=== PATIENT | female | born 1970 | race Caucasian/White ===

== ENCOUNTER 2016-04-23 17:05 | Observation (INO) | payer MEDICARE, MEDICAID ==
[~2016-04-23 17:05] MED LIST: ALBU.63PRN NEB; ALLO100 PO; ATOR20TA42 PO; CYMB30CA PO; FLUT1INH7 INH; METF500 PO; METO25 PO; MONT10 PO; NEUR600T PO; PRED20 PO; TRAZ100 PO
[2016-04-23 17:35] VITALS: BP 105/59; PULSE 79; RESP 16; TEMP 98.2; O2SAT 98
[2016-04-23] MEDS ORDERED: SODIUM CHLOR 0.9% 1000 ML INJ 1,000 ML IV SCH ×2 (17:40→21:12)
--- NOTE | 2016-04-23 17:54 | RADRPT ---
EXAM DATE/TIME: 04/23/2016 17:49 [facility] COMPARISON: CHEST SINGLE AP, October 09, 2015, 16:44. INDICATIONS : Syncopal episode today MEDICAL HISTORY : None. SURGICAL HISTORY : None. ENCOUNTER: Initial ACUITY: 1 day PAIN SCORE: 0/10 LOCATION: Bilateral chest FINDINGS: A single view of the chest demonstrates the lungs to be symmetrically aerated without evidence of mas s, infiltrate or effusion. The cardiomediastinal contours are unremarkable. Osseous structures are intact. CONCLUSION: No evidence of acute cardiopulmonary disease. Edi Love MD on April 23, 2016 at 17:53 Board Certified Radiologist. This report was verified electronically.
--- NOTE | 2016-04-23 18:11 | PD ---
HPI Chief Complaint: Syncope/Near-Syncope Time Seen by Provider: 18:01 Travel History International Travel<30 days: No Contact w/Intl Traveler<30days: No Traveled to known affect area: No History of Present Illness HPI 46-year-old female that presents to the ED for evaluation of possible syncopal episode. There are U back and patient she apparently was driving and was going to [place] when she per patient didn't fell well and had a syncopal episode. Per patient she lost consciousness. She denies falling or hitting her head. When asked if she fell anything before she passed out she says that she didn't. On my exam patient does appear to be very lethargic but is arousable. Patient states that for the past 2 weeks she's been having kidney stone/urinary symptoms and apparently she was prescribed codeine and she's been taking it since. When asked why she took the codeine today which she does tell me that she took it she states that she had some problems with her urine and some back pains as he thought that she was related to the kidney stones that she took the medication. Per patient she took this around 10:00. Per patient she took 300 mg. She minimizes driving and taking the medication. She also tells me that she's had 6 syncopal episodes since 2015. She states that she's also had some falls and uses usually a walker to go about. She denies any chest pain or shortness of breath. At this time she complains of nothing but she is somewhat lethargic. She denies any blood thinners. She does have a history of psychiatric illness including bipolar disorder. History of diabetes and hypertension. PFSH Past Medical History Arthritis: Yes (RA) Asthma: Yes Bipolar Disorder: Yes Anxiety: Yes Depression: Yes High Cholesterol: Yes Chemotherapy: No Chest Pain: No Cerebrovascular Accident: No Diabetes: Yes (METFORMIN 01/23/16) Diminished Hearing: No Endocrine: Yes Fibromyalgia: Yes Gastrointestinal Disorders: Yes (VOMITING ) GERD: Yes Genitourinary: No Hypertension: Yes Immune Disorder: No Implanted Vascular Access Dvce: No Musculoskeletal: Yes (HERNIATED DISC IN NECK) Reproductive: No Respiratory: Yes (COPD, ASTHMA) Immunizations Current: Yes Migraines: No Menopausal: Yes : 0 Past Surgical History Abdominal Surgery: No Appendectomy: Yes Cardiac Surgery: No Cholecystectomy: Yes Ear Surgery: No Endocrine Surgery: No Eye Surgery: No Genitourinary Surgery: Yes (BLADDER SLING REMOVED) Gynecologic Surgery: Yes Hysterectomy: Yes Neurologic Surgery: No Oral Surgery: No Thoracic Surgery: No Tonsillectomy: Yes Other Surgery: Yes (NECK SURGERY 10-10-14) Social History Alcohol Use: No Tobacco Use: No Substance Use: No Allergies-Medications (Allergen,Severity, Reaction): Coded Allergies: Amoxicillin (Verified Allergy, Severe, HIVES, 04/23/16) Flexeril (Verified Allergy, Severe, HIVES, 04/23/16) Ibuprofen (Verified Allergy, Severe, Bleeding, 04/23/16) Motrin (Verified Allergy, Severe, GI BLEED, 04/23/16) Reglan (Verified Allergy, Severe, DYSTONIA, 04/23/16) Skelaxin (Verified Allergy, Severe, HIVES, 04/23/16) Tomato (Verified Allergy, Severe, 04/23/16) Dilaudid (Verified Adverse Reaction, Intermediate, VOMITING, 04/23/16) Uncoded Allergies: ADIPEX (Allergy, Unknown, 10/18/13) Reported Meds & Prescriptions Reported Meds & Active Scripts Active Reported Albuterol Neb (Albuterol Sulfate) 0.63 Mg/3 Ml Neb 0.63 Mg NEB QID NEB PRN Allopurinol 100 Mg Tab 100 Mg PO DAILY Atorvastatin (Atorvastatin Calcium) 20 Mg Tab 20 Mg PO HS Breo Ellipta Inh (Fluticasone/Vilanterol) 200-25 Mcg/Act Inh 1 Puff INH DAILY Use daily at the same time. Gabapentin 800 Mg Tab 800 Mg PO TID Metformin (Metformin HCl) 500 Mg Tab 500 Mg PO BIDPC With meals Metoprolol Tartrate 25 Mg Tab 25 Mg PO BID Montelukast (Montelukast Sodium) 10 Mg Tab 10 Mg PO HS Trazodone (Trazodone HCl) 100 Mg Tab 100 Mg PO HS Baclofen 10 Mg Tab 10 Mg PO TID Review of Systems General / Constitutional: No: Fever, Chills, Weight Gain, Weight Loss, Other Eyes: No: Diploplia, Blurred Vision, Photophobia, Drainage, Redness, Foreign Body Sensation, Pain, Tearing, Blind Spots, Visual changes, Blindness, Other HENT: Positive: Lightheadedness, No: Headaches, Vertigo, Sore Throat, Rhinitis , Rhinorrhea, Congestion, Nosebleed, Neck Stiffness, Neck Pain, Masses, Gingival Bleeding, Dental Difficulties, Ear Discharge, Earache, Other Cardiovascular: No: Chest Pain or Discomfort, Palpitations, Irregular Rhythm, Tachycardia, Diaphoresis, Syncope, Dyspnea on exertion, Varicosities, Edema, Cyanosis, Varicosities, Phlebitis, Claudication, Other Respiratory: No: Cough, Shortness of Breath, Wheezing, Sneezing, Orthopnea, Hemoptysis, Stridor, Night Sweats, Pleuritic Pain, Other Gastrointestinal: No: Nausea, Vomiting, Diarrhea, Abdominal Pain, Hematemesis, Hematochezia, Constipation, Changes in Bowel Habits, Indigestion, Dysphagia, Loss of Appetite, Other Genitourinary: Positive: Frequency, Dysuria, Flank Pain, No: Urgency, Nocturia , Hematuria, Decreased Urinary Output, Oliguria, Hesitancy, Dribbling, Incontinence, Pelvic Pain, Dyspareunia, Discharge, Dysmenorrhea, Menorrhagia, Metorrhagia, Vaginal Bleeding, Other Musculoskeletal: No: Myalgias, Arthralgias, Limited ROM, Weakness, Cramping, Edema, Pain, Atrophy, Other Skin: No Rash, No Itching, No Dryness, No Lumps, No Hives, No Change in Pigmentation, No Change in nails, No Alopecia, No Lesions, No Breast Lumps, No Breast Tenderness, No Breast Swelling, No Other Neurologic: Positive: Dizziness, Syncope, No: Weakness, Focal Abnormalities, Coordination Problem, Tremor, Ataxia, Headache, Change in Mentation, Slurred Speech, Paresthesia, Incontinence, Seizures, Sensory Disturbance, Other Psychiatric: Positive: Mood Disorder, Substance Abuse, No: Anxiety, Depression , Suicidal Ideations, Disorder of Thought, Homicidal Ideation, Other Endocrine: No: Heat Intolerance, Cold Intolerance, Polyuria, Polydipsia, Other Hematologic/Lymphatic: No: Easy Bruising, Lymph Node Enlargement, Other Physical Exam Narrative GENERAL: SKIN: Warm and dry. HEAD: Atraumatic. Normocephalic. EYES: Pupils equal and round dilated 6 mm reactive to light and accomodation. No scleral icterus. No injection or drainage. ENT: No nasal bleeding or discharge. Mucous membranes pink and moist. Tongue is midline. No uvula deviation. NECK: Trachea midline. No JVD. CARDIOVASCULAR: Regular rate and rhythm. No murmurs, S3, S4. RESPIRATORY: No accessory muscle use. Clear to auscultation. Breath sounds equal bilaterally. GASTROINTESTINAL: Abdomen soft, non-tender, nondistended. Hepatic and splenic margins not palpable. MUSCULOSKELETAL: Extremities without clubbing, cyanosis, or edema. No obvious deformities. Full range of motion of the upper and lower extremities bilaterally. 2+ pulses in all extremities. NEUROLOGICAL: Awake and alert. No obvious cranial nerve deficits. Motor grossly within normal limits. Five out of 5 muscle strength in the arms and legs. Normal speech. PSYCHIATRIC: Appropriate mood and affect; insight and judgment normal. Data Data Last Documented VS Vital Signs Date Time Temp Pulse Resp B/P Pulse Ox O2 Delivery O2 Flow Rate FiO2 04/23/16 20:28 74 16 98 Room Air 04/23/16 20:28 98.1 111/71 Orders Electrocardiogram (04/23/16 ) Complete Blood Count With Diff (04/23/16 17:38) Comprehensive Metabolic Panel (04/23/16:38) Troponin I (04/23/16:38) Prothrombin Time / Inr (Pt) (04/23/16:38) Act Partial Throm Time (Ptt) (04/23/16:38) Lipase (04/23/16 17:38) Urinalysis - C+S If Indicated (04/23/16:38) Magnesium (Mg) (04/23/16 17:38) Thyroid Stimulating Hormone (04/23/16 17:38) Chest, Single Ap (04/23/16 17:38) Ct Brain W/O Iv Contrast(Rout) (04/23/16 17:38) Iv Access Insert/Monitor (04/23/16:38) Ecg Monitoring (04/23/16:38) Oximetry (04/23/16 17:38) Drug Screen, Random Urine (04/23/16:38) Alcohol (Ethanol) (04/23/16 17:38) Tylenol (Acetaminophen) (04/23/16 17:38) Sodium Chlor 0.9% 1000 Ml Inj (Ns 1000 M (04/23/16 17:40) Naloxone Inj (Narcan Inj) (04/23/16 19:45) Acetaminophen (Tylenol) (04/23/16 21:00) Admit Order (Ed Use Only) (04/23/16 21:07) Labs Laboratory Tests Test 04/23/16 04/23/16 18:45 19:30 White Blood Count 10.2 TH/MM3 Red Blood Count 3.98 MIL/MM3 Hemoglobin 11.6 GM/DL Hematocrit 35.8 % Mean Corpuscular Volume 89.8 FL Mean Corpuscular Hemoglobin 29.1 PG Mean Corpuscular Hemoglobin 32.4 % Concent Red Cell Distribution Width 16.3 % Platelet Count 297 TH/MM3 Mean Platelet Volume 7.9 FL Neutrophils (%) (Auto) 75.7 % Lymphocytes (%) (Auto) 15.0 % Monocytes (%) (Auto) 8.3 % Eosinophils (%) (Auto) 0.8 % Basophils (%) (Auto) 0.2 % Neutrophils # (Auto) 7.8 TH/MM3 Lymphocytes # (Auto) 1.5 TH/MM3 Monocytes # (Auto) 0.9 TH/MM3 Eosinophils # (Auto) 0.1 TH/MM3 Basophils # (Auto) 0.0 TH/MM3 CBC Comment DIFF FINAL Differential Comment Prothrombin Time 9.7 SEC Prothromb Time International 0.9 RATIO Ratio Activated Partial 21.1 SEC Thromboplast Time Sodium Level 142 MEQ/L Potassium Level 3.7 MEQ/L Chloride Level 109 MEQ/L Carbon Dioxide Level 26.3 MEQ/L Anion Gap 7 MEQ/L Blood Urea Nitrogen 25 MG/DL Creatinine 1.24 MG/DL Estimat Glomerular Filtration 47 ML/MIN Rate Random Glucose 103 MG/DL Calcium Level 8.7 MG/DL Magnesium Level 2.2 MG/DL Total Bilirubin 0.2 MG/DL Aspartate Amino Transf 14 U/L (AST/SGOT) Alanine Aminotransferase 25 U/L (ALT/SGPT) Alkaline Phosphatase 105 U/L Troponin I LESS THAN 0.02 NG/ML Total Protein 6.5 GM/DL Albumin 3.1 GM/DL Lipase 136 U/L Thyroid Stimulating Hormone 0.845 uIU/ML 3rd Gen Acetaminophen Level LESS THAN 2.0 MCG/ML Ethyl Alcohol Level LESS THAN 3 MG/DL Urine Color YELLOW Urine Turbidity CLEAR Urine pH 6.0 Urine Specific Anderson 1.015 Urine Protein NEG mg/dL Urine Glucose (UA) NEG mg/dL Urine Ketones NEG mg/dL Urine Occult Blood NEG Urine Nitrite NEG Urine Bilirubin NEG Urine Urobilinogen LESS THAN 2.0 MG/DL Urine Leukocyte Esterase NEG Urine WBC 2 /hpf Microscopic Urinalysis Comment CULT NOT INDICATED Urine Opiates Screen POS Urine Barbiturates Screen NEG Urine Amphetamines Screen NEG Urine Benzodiazepines Screen NEG Urine Cocaine Screen NEG Urine Cannabinoids Screen NEG MDM Medical Decision Making Medical Screen Exam Complete: Yes Emergency Medical Condition: Yes Medical Record Reviewed: Yes Interpretation(s) Last Impressions Head CT 04/23/161737 Signed Impressions: Service Date/Time: Saturday, April 23, 2016 18:03 - CONCLUSION: Negative noncontrast head CT. Edi Love MD Chest X-Ray 04/23/161737 Signed Impressions: Service Date/Time: Saturday, April 23, 2016 17:49 - CONCLUSION: No evidence of acute cardiopulmonary disease. Edi Love MD CBC & BMP Diagram 04/23/16 18:45 Coags within normal limits. Urine negative EKG shows sinus rhythm with no sign of acute ischemia or arrhythmia read by me and attending. LFTs within normal limits. tox screen positive for opiates Differential Diagnosis Syncope versus medication side effect versus substance abuse versus hypoglycemia versus kidney injury versus dehydration versus metabolic disorder versus presyncope Narrative Course 46-year-old female that presents to the ED for evaluation of syncope. Patient was properly examined and was found to have signs and symptoms consistent with appears to be syncope. From my history it appears to be more likely related to over abuse of the codeine. We'll do labwork and imaging to make sure there is no other acute disease. Labs and imaging showed no sign of acute disease other than positive for opiates. My attending Dr. Martinez evaluated the patient and per her evaluation patient was more somnolent during her examination. She recommended admission and Narcan. Narcan was given. She was reassessed and now she complains of a headache. She does appear to be more arousable but she still seems somewhat somnolent. Recommendation is for admission for out. Case was discussed with Dr. Plascencia who agrees to admission. Diagnosis Primary Impression: Opiate abuse, continuous Additional Impression: Syncope Qualified Code: R55 - Syncope, unspecified syncope type Admitting Information Admitting Physician Requests: Observation Wilmar Turner Apr 23, 2016 18:11
--- NOTE | 2016-04-23 18:27 | RADRPT ---
EXAM DATE/TIME: 04/23/2016 18:03 [facility] COMPARISON: CT BRAIN W/O CONTRAST, July 31, 2015, 1:36. INDICATIONS : Syncopal episode. RADIATION DOSE: 47.75 CTDIvol (mGy) MEDICAL HISTORY : Hypertension. Diabetes mellitus type 2. SURGICAL HISTORY : None. ENCOUNTER: Initial ACUITY: 1 day PAIN SCALE: 0/10 LOCATION: cranial TECHNIQUE: Multiple contiguous axial images were obtained of the head. Using automated exposure control and adj ustment of the mA and/or kV according to patient size, radiation dose was kept as low as reasonably a chievable to obtain optimal diagnostic quality images. FINDINGS: CEREBRUM: The ventricles are normal for age. No evidence of midline shift, mass lesion, hemorrhage or acute in farction. No extra-axial fluid collections are seen. POSTERIOR FOSSA: The cerebellum and brainstem are intact. The 4th ventricle is midline. The cerebellopontine angle i s unremarkable. EXTRACRANIAL: The visualized portion of the orbits is intact. SKULL: The calvaria is intact. No evidence of skull fracture. CONCLUSION: Negative noncontrast head CT. Edi Love MD on April 23, 2016 at 18:25 Board Certified Radiologist. This report was verified electronically.
[2016-04-23] MEDS ORDERED: ALLO100T PO (18:47)
[2016-04-23] MEDS ORDERED: METF500T PO (18:47)
[2016-04-23] MEDS ORDERED: TRAZ100T4 PO (18:47)
[2016-04-23] MEDS ORDERED: ALBU0.63 NEB (18:47)
[2016-04-23] MEDS ORDERED: METO25TA3 PO (18:47)
[2016-04-23] MEDS ORDERED: BACL10TA PO (18:47)
[2016-04-23] MEDS ORDERED: GABA800T PO (18:47)
[2016-04-23] MEDS ORDERED: FLUT1INH7 INH (18:47)
[2016-04-23] MEDS ORDERED: MONT10TA4 PO (18:47)
[2016-04-23] MEDS ORDERED: ATOR20TA15 PO (18:47)
[2016-04-23 19:06] LABS: AUTOMATED NEUTROPHIL # 7.8 TH/MM3 (1.8-7.7); BASOPHIL % 0.2 % (0.0-2.0); EOSINOPHIL # 0.1 TH/MM3 (0-0.4); EOSINOPHIL % 0.8 % (0.0-4.0); HEMATOCRIT 35.8 % (35.0-46.0); HEMO FLAGS DIFF FINAL; LYMPHOCYTE # 1.5 TH/MM3 (1.0-4.8); MEAN CELL VOLUME 89.8 FL (80.0-100.0); MEAN CORPUSCULAR HEMOGLOBIN 29.1 PG (27.0-34.0); MEAN CORPUSCULAR HGB CONC 32.4 % (32.0-36.0); MONO % 8.3 % (0.0-8.0); NEUT % 75.7 % (16.0-70.0); PLATELET COUNT 297 TH/MM3 (150-450); RED BLOOD COUNT 3.98 MIL/MM3 (4.00-5.30); RED CELL DISTRIBUTION WIDTH 16.3 % (11.6-17.2); WHITE BLOOD COUNT 10.2 TH/MM3 (4.0-11.0)
[2016-04-23 19:43] LABS: BLOOD, URINE NEG (NEG); COMMENT (UR) CULT NOT INDICATED; CULTURE IF INDICATED CULT NOT INDICATED; GLUCOSE,URINE NEG (NEG); KETONE, URINE NEG (NEG); NITRITE,URINE NEG (NEG); URINE COLOR YELLOW (YELLW/STRAW)
[2016-04-23 19:44] LABS: ANION GAP 7 MEQ/L (5-15); AST (GOT) 14 U/L (15-37); BICARBONATE 26.3 MEQ/L (21.0-32.0); BLOOD UREA NITROGEN 25 MG/DL (7-18); CHLORIDE 109 MEQ/L (98-107); GLOMERULAR FILTRATION RATE 47 ML/MIN (>89); MAGNESIUM 2.2 MG/DL (1.5-2.5); POTASSIUM 3.7 MEQ/L (3.5-5.1); SODIUM (NA) 142 MEQ/L (136-145)
[2016-04-23] MEDS ORDERED: NALOXONE HCL 0.4 MG/ML AMP IV PUSH PRN (19:45)
--- NOTE | 2016-04-23 19:45 | PD ---
Physical Exam Date Seen by Provider: Apr 23, 2016 Time Seen by Provider: 18:30 Narrative I, Dr. Ulloa, have reviewed the advance practice practitioner's documentation and am in agreement, met with the patient face to face, made the diagnosis, and the medical decision making was done by me. *My assessment and Findings: Patient seen and evaluated with PA, please see PA further information. Had syncopal episodes at [facility] Patient admits to taking Tylenol 3. On my evaluation, patient is fairly lethargic and barely able to talk to me. Pupils are dilated. Vital signs are stable in the ER. Initial EKG not show any signs of dysrhythmias. Pulmonary and cardiac exams are essentially unremarkable and patient is able to move all 4 extremities. Laboratory Tests Test 04/23/16 18:45 Red Blood Count 3.98 MIL/MM3 (4.00-5.30) Neutrophils (%) (Auto) 75.7 % (16.0-70.0) Monocytes (%) (Auto) 8.3 % (0.0-8.0) Neutrophils # (Auto) 7.8 TH/MM3 (1.8-7.7) Last [address] 04/23/161737 Signed Impressions: Service Date/Time: Saturday, April 23, 2016 18:03 - CONCLUSION: Negative noncontrast head CT. Edi Love MD Chest X-Ray 04/23/161737 Signed Impressions: Service Date/Time: Saturday, April 23, 2016 17:49 - CONCLUSION: No evidence of acute cardiopulmonary disease. Edi Love MD At this point, my plan would be to admit the patient for observation for possible overmedication, altered mental status as well as syncope. Data Data Last Documented VS Vital Signs Date Time Temp Pulse Resp B/P Pulse Ox O2 Delivery O2 Flow Rate FiO2 04/23/16 17:35 98.2 79 16 105/59 98 Orders Electrocardiogram (04/23/16 ) Complete Blood Count With Diff (04/23/16 17:38) Comprehensive Metabolic Panel (04/23/16 17:38) Troponin I (04/23/16 17:38) Prothrombin Time / Inr (Pt) (04/23/16 17:38) Act Partial Throm Time (Ptt) (04/23/16 17:38) Lipase (04/23/16 17:38) Urinalysis - C+S If Indicated (04/23/16 17:38) Magnesium (Mg) (04/23/16 17:38) Thyroid Stimulating Hormone (04/23/16 17:38) Chest, Single Ap (04/23/16 17:38) Ct Brain W/O Iv Contrast(Rout) (04/23/16 17:38) Iv Access Insert/Monitor (04/23/16:38) Ecg Monitoring (04/23/16:38) Oximetry (04/23/16 17:38) Drug Screen, Random Urine (04/23/16 17:38) Alcohol (Ethanol) (04/23/16:38) Tylenol (Acetaminophen) (04/23/16:38) Sodium Chlor 0.9% 1000 Ml Inj (Ns 1000 M (04/23/16 17:40) Naloxone Inj (Narcan Inj) (04/23/16 19:45) Labs Laboratory Tests Test 04/23/16 18:45 White Blood Count 10.2 TH/MM3 Red Blood Count 3.98 MIL/MM3 Hemoglobin 11.6 GM/DL Hematocrit 35.8 % Mean Corpuscular Volume 89.8 FL Mean Corpuscular Hemoglobin 29.1 PG Mean Corpuscular Hemoglobin 32.4 % Concent Red Cell Distribution Width 16.3 % Platelet Count 297 TH/MM3 Mean Platelet Volume 7.9 FL Neutrophils (%) (Auto) 75.7 % Lymphocytes (%) (Auto) 15.0 % Monocytes (%) (Auto) 8.3 % Eosinophils (%) (Auto) 0.8 % Basophils (%) (Auto) 0.2 % Neutrophils # (Auto) 7.8 TH/MM3 Lymphocytes # (Auto) 1.5 TH/MM3 Monocytes # (Auto) 0.9 TH/MM3 Eosinophils # (Auto) 0.1 TH/MM3 Basophils # (Auto) 0.0 TH/MM3 CBC Comment DIFF FINAL Differential Comment MDM Medical Record Reviewed: Yes Supervised Visit with REEMA: Yes Diagnosis Primary Impression: Overdose Admitting Information Admitting Physician Requests: Admit Laurence Ulloa MD Apr 23, 2016 19:45
[2016-04-23 19:54] LABS: AMPHETAMINE, URINE NEG (NEG); BARBITURATES, URINE NEG (NEG); COCAINE, URINE NEG (NEG)
[2016-04-23 19:55] LABS: ACETAMINOPHEN LESS THAN 2.0 MCG/ML (10.0-30.0); ALKALINE PHOSPHATASE 105 U/L (45-117); ALT (GPT) 25 U/L (10-53); APTT (PATIENT) 21.1 SEC (24.3-30.1); INTERNATIONAL NORMALIZED RATIO 0.9 RATIO; PROTHROMBIN TIME - PATIENT 9.7 SEC (9.8-11.6); TOTAL BILIRUBIN ADULT 0.2 MG/DL (0.2-1.0)
[2016-04-23 20:28] VITALS: BP 111/71; PULSE 73; RESP 16; TEMP 98.1; O2SAT 100
[2016-04-23] MEDS ORDERED: ACETAMINOPHEN 325 MG TAB PO ONE (21:00)
--- NOTE | 2016-04-23 21:14 | HHI.HP ---
HPI Service [facility] Primary Care Physician No Primary Care Physician Admission Diagnosis syncope, substance abuse Diagnoses: (1) Syncope Diagnosis: Principal (2) Opiate abuse, continuous Diagnosis: Principal (3) Renal insufficiency Diagnosis: Principal (4) Bipolar disorder Diagnosis: Principal (5) DM (diabetes mellitus) Diagnosis: Principal Travel History International Travel<30 Days: No Contact w/Intl Traveler <30 Da: No Traveled to Known Affected Are: No History of Present Illness This is a 46-year-old female with a PMH of Anxiety, Depression, Bipolar Disorder , h/o Omer Act w/ Homicidal Ideation, DM, HTN, Fibromyalgia and COPD who was brought to the ER by EMS after syncopal episode. Per report, pt had syncopal event while at [employer] [address] through. LOC for unknown length of time. No head trauma reported. On arrival, BP 105/59, HR 79, O2 sat 98% on RA, Afebrile. While in ER, pt noted to be lethargic, difficult to arouse, s/p Narcan w/ improvement in mental status. Currently awake, alert. Requesting pain medication for headache. CBC unremarkable. Creatinine 1.24, previously 0.81 on 10/23/15. UA negative. Urine Drug Screen positive for opiates. Alcohol negative. Tylenol negative. CT Head negative. CXR with no acute findings. Per patient, she states she was driving "on the highway" and had acute dizziness , pulled over into [employer] parking lot and had syncopal episode. Review of Systems Except as stated in HPI: all other systems reviewed are Neg ROS: 14 point review of systems otherwise negative. Past Family Social History Past Medical History PMH: Anxiety, Depression, Bipolar Disorder, h/o Omer Act w/ Homicidal Ideation , DM, HTN, Fibromyalgia and COPD Past Surgical History PAST SURGICAL HISTORY: Appendectomy, Bladder Sling with Removal, Cholecystectomy, Tonsillectomy, Neck Surgery Allergies: Coded Allergies: Amoxicillin (Verified Allergy, Severe, HIVES, 04/23/16) Flexeril (Verified Allergy, Severe, HIVES, 04/23/16) Ibuprofen (Verified Allergy, Severe, Bleeding, 04/23/16) Motrin (Verified Allergy, Severe, GI BLEED, 04/23/16) Reglan (Verified Allergy, Severe, DYSTONIA, 04/23/16) Skelaxin (Verified Allergy, Severe, HIVES, 04/23/16) Tomato (Verified Allergy, Severe, 04/23/16) Dilaudid (Verified Adverse Reaction, Intermediate, VOMITING, 04/23/16) Uncoded Allergies: ADIPEX (Allergy, Unknown, 10/18/13) Family History PAST FAMILY HISTORY: Reviewed. No h/o DM or CAD Social History PAST SOCIAL HISTORY: Reportedly negative for alcohol, tobacco or drugs however history of Opiate Abuse Physical Exam Vital Signs Vital Signs Date Time Temp Pulse Resp B/P Pulse Ox O2 Delivery O2 Flow Rate FiO2 04/23/16 20:28 74 16 98 Room Air 04/23/16 20:28 98.1 73 16 111/71 100 Room Air 04/23/16 17:35 98.2 79 16 105/59 98 Physical Exam PE: GENERAL: Middle-aged female in no acute distress however significant agitation HEENT: PERRLA, EOMI. No scleral icterus or conjunctival pallor. No lid lag or facial droop. CARDIOVASCULAR: Regular rate and rhythm. No obvious murmurs to auscultation. No chest tenderness to palpation. RESPIRATORY: No obvious rhonchi or wheezing. Clear to auscultation. Breath sounds equal bilaterally. GASTROINTESTINAL: Abdomen soft, non-tender, nondistended. BS normal. MUSCULOSKELETAL: Extremities without clubbing, cyanosis, or edema. No obvious deformities. NEUROLOGICAL: Awake, alert and oriented x4. No focal neurologic deficits. Moving both upper and lower extremities spontaneously. Laboratory Laboratory Tests Test 04/23/16 04/23/16 18:45 19:30 White Blood Count 10.2 Red Blood Count 3.98 Hemoglobin 11.6 Hematocrit 35.8 Mean Corpuscular Volume 89.8 Mean Corpuscular Hemoglobin 29.1 Mean Corpuscular Hemoglobin 32.4 Concent Red Cell Distribution Width 16.3 Platelet Count 297 Mean Platelet Volume 7.9 Neutrophils (%) (Auto) 75.7 Lymphocytes (%) (Auto) 15.0 Monocytes (%) (Auto) 8.3 Eosinophils (%) (Auto) 0.8 Basophils (%) (Auto) 0.2 Neutrophils # (Auto) 7.8 Lymphocytes # (Auto) 1.5 Monocytes # (Auto) 0.9 Eosinophils # (Auto) 0.1 Basophils # (Auto) 0.0 CBC Comment DIFF FINAL Differential Comment Prothrombin Time 9.7 Prothromb Time International 0.9 Ratio Activated Partial 21.1 Thromboplast Time Sodium Level 142 Potassium Level 3.7 Chloride Level 109 Carbon Dioxide Level 26.3 Anion Gap 7 Blood Urea Nitrogen 25 Creatinine 1.24 Estimat Glomerular Filtration 47 Rate Random Glucose 103 Calcium Level 8.7 Magnesium Level 2.2 Total Bilirubin 0.2 Aspartate Amino Transf 14 (AST/SGOT) Alanine Aminotransferase 25 (ALT/SGPT) Alkaline Phosphatase 105 Troponin I LESS THAN 0.02 Total Protein 6.5 Albumin 3.1 Lipase 136 Thyroid Stimulating Hormone 0.845 3rd Gen Acetaminophen Level LESS THAN 2.0 Ethyl Alcohol Level LESS THAN 3 Urine Color YELLOW Urine Turbidity CLEAR Urine pH 6.0 Urine Specific [place] 1.015 Urine Protein NEG Urine Glucose (UA) NEG Urine Ketones NEG Urine Occult Blood NEG Urine Nitrite NEG Urine Bilirubin NEG Urine Urobilinogen LESS THAN 2.0 Urine Leukocyte Esterase NEG Urine WBC 2 Microscopic Urinalysis Comment CULT NOT INDICATED Urine Opiates Screen POS Urine Barbiturates Screen NEG Urine Amphetamines Screen NEG Urine Benzodiazepines Screen NEG Urine Cocaine Screen NEG Urine Cannabinoids Screen NEG Result Diagram: 04/23/16184404/23/161844 Assessment and Plan Problem List: (1) Syncope ICD Code: R55 Status: Acute (2) Opiate abuse, continuous ICD Code: F11.10 Status: Acute (3) Renal insufficiency ICD Code: N28.9 Status: Acute (4) Bipolar disorder ICD Code: F31.9 Status: Acute (5) DM (diabetes mellitus) ICD Code: E11.9 Status: Chronic Assessment and Plan A/P: 1. Syncope: Likely multifactorial-related to dehydration and Opiate Abuse. CT Head w/ no acute findings. Admit for Observation, telemetry, IVF for hydration, check Echo. CXR with no acute findings, images reviewed by me. 2. Opiate Dependence: h/o Opiate Dependence, reports taking Codeine earlier for c/o back pain, Urine Drug Screen positive for Opiates. Pt lethargic while in ER, difficult to arouse, s/p Narcan w/ improvement, now asking for pain medication due to headache. Tylenol prn if needed for headache. Avoid narcotics due to lethargy and syncopal event. 3. Renal Insufficiency: CRISS. Creatinine 1.24, produces 0.81 on 10/23/15. UA negative. IVF, repeat labs in a.m. 4. Bipolar Disorder: h/o Omer Act due to Homicidal Ideation, no suicidal/ homicidal ideation at this time. States she follows w/ Psychiatrist in [facility] who prescribes her Topamax for headache, friend to bring in pill bottles for verification. 5. DM: Sliding scale w/ Accu-Cheks. Hold Metformin in light of renal insufficiency. 6. DVT Prophylaxis: SCD/Teds. 7. Social work for d/c planning as needed. 8. Case discussed w/ ER physician at length Problem Qualifiers (1) Syncope: Qualified Code: R55 - Syncope, unspecified syncope type Indu Plascencia MD Apr 23, 2016 21:14
[2016-04-23] MEDS ORDERED: BISACODYL 10 MG SUPP PR PRN (21:15)
[2016-04-23] MEDS ORDERED: ACETAMINOPHEN 325 MG TAB PO PRN (21:15)
[2016-04-23] MEDS ORDERED: SODIUM CHLORIDE 0.9% FLUSH 5 ML FLUSH FLUSH PRN (21:15)
[2016-04-23] MEDS ORDERED: ONDANSETRON HCL 4 MG/2 ML VIAL IVP PRN (21:15)
[2016-04-23] MEDS ORDERED: RESP: ALBUTEROL 0.63 MG/3 ML NEB (PRN) NEB (21:15)
[2016-04-23] MEDS ORDERED: traZODone HCL 100 MG TAB PO SCH (22:00)
[2016-04-24] MEDS ORDERED: FLUTICASONE 100 MCG/VILANTEROL 25 MCG INHALER INH SCH (09:00)
[2016-04-24] MEDS ORDERED: SODIUM CHLORIDE 0.9% FLUSH 5 ML FLUSH FLUSH SCH (09:00)
--- NOTE | 2016-04-24 14:28 | EKG ---
Date Performed: 04/23/2016 Time Performed: 17:36:49 PTAGE: 46 years EKG: Sinus rhythm NONSPECIFIC T-WAVE ABNORMALITY Compared to prior tracing no significant change BORDERLINE ECG PREVIOUS TRACING : 10/09/2015 15.51 DOCTOR: Mike Ruth Interpretating Date/Time 04/24/2016 14:28:08
[2016-04-24] MEDS ORDERED: MONTELUKAST SODIUM 10 MG TAB PO SCH (21:00)
[2016-04-24] MEDS ORDERED: traZODone HCL 100 MG TAB PO SCH (21:00)
== END 2016-04-23 23:38 | disposition left against medical advice (07) ==
LOC: NEPE 17:05 → NEDA 21:09
PROVIDERS: ADMIT Hospitalist; ATTEND Hospitalist
DX: R55 Syncope and collapse (principal); F11.10 Opioid abuse, uncomplicated; N17.9 Acute kidney failure, unspecified; F31.9 Bipolar disorder, unspecified; E11.9 Type 2 diabetes mellitus without complications; F41.9 Anxiety disorder, unspecified; I10 Essential (primary) hypertension; M79.7 Fibromyalgia; E86.0 Dehydration; K21.9 Gastro-esophageal reflux disease without esophagitis; J45.909 Unspecified asthma, uncomplicated; E78.00 Pure hypercholesterolemia, unspecified; J44.9 Chronic obstructive pulmonary disease, unspecified; Z88.1 Allergy status to other antibiotic agents; Z88.5 Allergy status to narcotic agent; Z88.8 Allergy status to other drugs, medicaments and biological substances; Z91.018 Allergy to other foods; Z79.84 Long term (current) use of oral hypoglycemic drugs
CPT/HCPCS: 70450; 71010; 80053; 80307; 81001; 83690; 83735; 84443; 84484; 85025; 85610; 85730; 93005; 96361; 96374; 99285; G0378; J2310; J7030

== ENCOUNTER 2016-07-25 13:00 | Emergency (ER) | payer MEDICARE, MEDICAID ==
[~2016-07-25] VITALS: Ht 170.2 cm; Wt 113.0 kg
[~2016-07-25 13:00] MED LIST changes: -ALBU.63PRN NEB; +ALBU0.63 NEB; -ALLO100 PO; +ALLO100T PO; +ATOR20TA15 PO; -ATOR20TA42 PO; +BACL10TA PO; -CYMB30CA PO; +GABA800T PO; -METF500 PO; +METF500T PO; -METO25 PO; +METO25TA3 PO; -MONT10 PO; +MONT10TA4 PO; -NEUR600T PO; -PRED20 PO; -TRAZ100 PO; +TRAZ100T4 PO
[2016-07-25] MEDS ORDERED: KEPP750T PO (13:14)
[2016-07-25 13:18] VITALS: BP 115/74; PULSE 75; RESP 21; TEMP 97.6; O2SAT 95
[2016-07-25 13:24] VITALS: O2SAT 97
[2016-07-25] MEDS ORDERED: SODIUM CHLORIDE 0.9% FLUSH 10 ML FLUSH IVF PRN (13:30)
--- NOTE | 2016-07-25 13:31 | PD ---
HPI Chief Complaint: Seizure Time Seen by Provider: 13:23 Travel History International Travel<30 days: No Contact w/Intl Traveler<30days: No Traveled to known affect area: No History of Present Illness HPI Patient comes in by EMS after reported witnessed seizure while at [employer] today. Patient states she remembers her seizure and it lasted approximately 10 minutes. Patient states when she has seizures she just falls asleep and cannot be awoke. Patient's states she takes Keppra for her seizure and sees her neurologist monthly. Patient states she does not drive secondary to the seizures. Patient states she feels a little funny in her head otherwise no other complaints. Patient denies any chest pain, shortness breath, abdominal pain, numbness or tingling anywhere, or muscle pain. PFSH Past Medical History Arthritis: Yes (RA) Asthma: Yes Bipolar Disorder: Yes Anxiety: Yes Depression: Yes Cardiovascular Problems: Yes (implanted medtronic recorder, ) High Cholesterol: Yes Chemotherapy: No Chest Pain: No Cerebrovascular Accident: No Diabetes: Yes Diminished Hearing: No Endocrine: Yes Fibromyalgia: Yes Gastrointestinal Disorders: Yes (VOMITING ) GERD: Yes Genitourinary: No Hypertension: Yes Immune Disorder: No Implanted Vascular Access Dvce: No Musculoskeletal: Yes (HERNIATED DISC IN NECK) Reproductive: No Respiratory: Yes (asthma) Immunizations Current: Yes Migraines: No ?: Not Menopausal: Yes : 0 Past Surgical History Abdominal Surgery: No Appendectomy: Yes Cardiac Surgery: No Cholecystectomy: Yes Ear Surgery: No Endocrine Surgery: No Eye Surgery: No Genitourinary Surgery: Yes (BLADDER SLING REMOVED) Gynecologic Surgery: Yes Hysterectomy: Yes Neurologic Surgery: No Oral Surgery: No Thoracic Surgery: No Tonsillectomy: Yes Other Surgery: Yes (NECK SURGERY 10-10-14) Social History Alcohol Use: Yes (occ.) Tobacco Use: No Substance Use: No Allergies-Medications (Allergen,Severity, Reaction): Coded Allergies: Amoxicillin (Verified Allergy, Severe, HIVES, 07/25/16) Flexeril (Verified Allergy, Severe, HIVES, 07/25/16) Ibuprofen (Verified Allergy, Severe, Bleeding, 07/25/16) Motrin (Verified Allergy, Severe, GI BLEED, 07/25/16) Reglan (Verified Allergy, Severe, DYSTONIA, 07/25/16) Skelaxin (Verified Allergy, Severe, HIVES, 07/25/16) Tomato (Verified Allergy, Severe, 07/25/16) Dilaudid (Verified Adverse Reaction, Intermediate, VOMITING, 07/25/16) Uncoded Allergies: ADIPEX (Allergy, Unknown, 10/18/13) Reported Meds & Prescriptions Reported Meds & Active Scripts Active Reported Ativan (Lorazepam) 1 Mg Tab 1 Mg PO TID Abilify (Aripiprazole) 15 Mg Tab 15 Mg PO HS Celexa (Citalopram Hydrobromide) 20 Mg Tab 40 Mg PO DAILY Trazodone (Trazodone HCl) 100 Mg Tablet 100 Mg PO HS Nexium (Esomeprazole DR) 40 Mg Capdr 40 Mg PO DAILY [Diclofenac Sodium] 75 Mg PO BID Keppra (Levetiracetam) 750 Mg Tab 750 Mg PO BID Gabapentin 800 Mg Tab 800 Mg PO TID Metformin (Metformin HCl) 500 Mg Tab 500 Mg PO BIDPC With meals Montelukast (Montelukast Sodium) 10 Mg Tab 10 Mg PO HS Baclofen 10 Mg Tab 10 Mg PO TID Review of Systems Except as stated in HPI: all other systems reviewed are Neg Physical Exam Narrative GENERAL: Well-developed, overly nourished, in no acute distress, and non-ill appearing. SKIN: Focused skin assessment warm and dry. HEAD: Atraumatic. Normocephalic. EYES: Pupils equal and round. EOMI. No scleral icterus. No injection or drainage. ENT: No nasal bleeding or discharge. Mucous membranes pink and moist. No oral lesions or bite gusman noted. NECK: Trachea midline. Supple. No nuclear rigidity. CARDIOVASCULAR: Regular rate and rhythm. No murmur appreciated. RESPIRATORY: No accessory muscle use. No respiratory distress. Clear to auscultation. Breath sounds equal bilaterally. MUSCULOSKELETAL: No obvious deformities. No clubbing. No cyanosis. No edema. Full range of motion. NEUROLOGICAL: Awake and alert. No obvious cranial nerve deficits. Motor grossly within normal limits. Normal speech. PSYCHIATRIC: Appropriate mood and affect; insight and judgment normal. Data Data Last Documented VS Vital Signs Date Time Temp Pulse Resp B/P Pulse Ox O2 Delivery O2 Flow Rate FiO2 07/25/16 13:24 97 Room Air 07/25/16 13:18 97.6 75 21 115/74 Orders Complete Blood Count With Diff (07/25/16 13:19) Basic Metabolic Panel (Bmp) (07/25/16 13:19) Alcohol (Ethanol) (07/25/16 13:19) Drug Screen, Random Urine (07/25/16 13:19) Blood Glucose (07/25/16 13:19) Ecg Monitoring (07/25/16 13:19) Iv Access Insert/Monitor (07/25/16 13:19) Oximetry (07/25/16 13:19) Sodium Chloride 0.9% Flush (Ns Flush) (07/25/16 13:30) Urinalysis - C+S If Indicated (07/25/16 13:19) Lactic Acid (07/25/16 13:19) Tylenol (Acetaminophen) (07/25/16 13:25) Labs Laboratory Tests Test 07/25/16 07/25/16 13:25 14:25 White Blood Count 13.4 TH/MM3 Red Blood Count 4.14 MIL/MM3 Hemoglobin 11.7 GM/DL Hematocrit 36.5 % Mean Corpuscular Volume 88.1 FL Mean Corpuscular Hemoglobin 28.3 PG Mean Corpuscular Hemoglobin 32.1 % Concent Red Cell Distribution Width 15.4 % Platelet Count 277 TH/MM3 Mean Platelet Volume 8.7 FL Neutrophils (%) (Auto) 74.1 % Lymphocytes (%) (Auto) 17.4 % Monocytes (%) (Auto) 6.3 % Eosinophils (%) (Auto) 1.6 % Basophils (%) (Auto) 0.6 % Neutrophils # (Auto) 9.9 TH/MM3 Lymphocytes # (Auto) 2.3 TH/MM3 Monocytes # (Auto) 0.8 TH/MM3 Eosinophils # (Auto) 0.2 TH/MM3 Basophils # (Auto) 0.1 TH/MM3 CBC Comment AUTO DIFF Differential Comment AUTO DIFF CONFIRMED Platelet Estimate NORMAL Platelet Morphology Comment CLUMPED Sodium Level 140 MEQ/L Potassium Level 4.0 MEQ/L Chloride Level 105 MEQ/L Carbon Dioxide Level 25.7 MEQ/L Anion Gap 9 MEQ/L Blood Urea Nitrogen 26 MG/DL Creatinine 0.95 MG/DL Estimat Glomerular Filtration 64 ML/MIN Rate Random Glucose 101 MG/DL Lactic Acid Level 1.8 mmol/L Calcium Level 8.8 MG/DL Acetaminophen Level LESS THAN 2.0 MCG/ML Ethyl Alcohol Level LESS THAN 3 MG/DL Urine Color LIGHT-YELLOW Urine Turbidity CLEAR Urine pH 5.0 Urine Specific [place] 1.006 Urine Protein NEG mg/dL Urine Glucose (UA) NEG mg/dL Urine Ketones NEG mg/dL Urine Occult Blood NEG Urine Nitrite NEG Urine Bilirubin NEG Urine Urobilinogen LESS THAN 2.0 MG/DL Urine Leukocyte Esterase NEG Urine RBC LESS THAN 1 /hpf Urine WBC LESS THAN 1 /hpf Urine Squamous Epithelial 1 /hpf Cells Urine Mucus FEW /lpf Microscopic Urinalysis Comment CULT NOT INDICATED Urine Opiates Screen NEG Urine Barbiturates Screen NEG Urine Amphetamines Screen NEG Urine Benzodiazepines Screen NEG Urine Cocaine Screen NEG Urine Cannabinoids Screen NEG MDM Medical Decision Making Medical Screen Exam Complete: Yes Emergency Medical Condition: Yes Medical Record Reviewed: Yes Differential Diagnosis Seizure, pseudoseizure, electrolyte abnormality, polypharmacy, other Narrative Course Patient's medical record reviewed show patient had an EEG done on 08/05/15 as read by the neurologist that showed no signs of epilepsy. Patient MRI brain done on 08/04/15 eye was read as negative. Head CT performed in April of this year read as negative. Patient was noted to been admitted to the hospital for observation after being found asleep while in a drive-through while going [employer] [place] secondary to being overmedicated. Will check laboratory values and reassess patient. Upon reassessment. Patient is resting comfortably in bed in no acute distress. I discussed all findings with patient I suspect this was a pseudoseizure today and unlikely a real seizure based on lack of an elevated lactic acid and previous medical records. Patient verbalizes understanding is feeling better and ready to go home. All questions were answered. Patient in no obvious distress upon re-evaluation. All pertinent laboratory result(s) discussed with patient. Discussed patient with Dr. Ulloa prior discharge, who is in agreement with plan of care and disposition. Any questions/concerns in reference to patient diagnosis/condition discussed and clarified prior to patient's discharge. Reinforced sheer importance of close follow up with patient's primary physician or primary care clinic. Instructed patient to return to ED immediately, if symptoms return/worsen. Pt showed understanding of above instructions. Further instructions and recommendations were detailed in discharge paperwork. Pt ambulated without difficulty out of ED at discharge with her walker. Diagnosis Primary Impression: Pseudoseizure Additional Instructions: Follow-up with your primary care physician and neurologist this week for reevaluation. Do not drive vehicle operating heavy machinery until cleared by a neurologist. Return to the emergency department if symptoms get worse. Disposition: 01 DISCHARGE HOME Condition: Stable Julian Tamayo Jul 25, 2016 13:31
[2016-07-25 13:45] LABS: AUTOMATED NEUTROPHIL # 9.9 TH/MM3 (1.8-7.7); BASOPHIL # 0.1 TH/MM3 (0-0.2); BASOPHIL % 0.6 % (0.0-2.0); EOSINOPHIL # 0.2 TH/MM3 (0-0.4); EOSINOPHIL % 1.6 % (0.0-4.0); HEMATOCRIT 36.5 % (35.0-46.0); LYMPH % 17.4 % (9.0-44.0); LYMPHOCYTE # 2.3 TH/MM3 (1.0-4.8); MEAN CELL VOLUME 88.1 FL (80.0-100.0); MEAN CORPUSCULAR HEMOGLOBIN 28.3 PG (27.0-34.0); MEAN CORPUSCULAR HGB CONC 32.1 % (32.0-36.0); MONO % 6.3 % (0.0-8.0); NEUT % 74.1 % (16.0-70.0); PLATELET COUNT 277 TH/MM3 (150-450); RED BLOOD COUNT 4.14 MIL/MM3 (4.00-5.30); RED CELL DISTRIBUTION WIDTH 15.4 % (11.6-17.2); WHITE BLOOD COUNT 13.4 TH/MM3 (4.0-11.0)
[2016-07-25 13:51] LABS: HEMO FLAGS AUTO DIFF
[2016-07-25 14:05] LABS: BICARBONATE 25.7 MEQ/L (21.0-32.0); BLOOD UREA NITROGEN 26 MG/DL (7-18); CHLORIDE 105 MEQ/L (98-107); GLOMERULAR FILTRATION RATE 64 ML/MIN (>89); SODIUM (NA) 140 MEQ/L (136-145)
[2016-07-25 14:06] LABS: ANION GAP 9 MEQ/L (5-15)
[2016-07-25 14:07] LABS: ACETAMINOPHEN LESS THAN 2.0 MCG/ML (10.0-30.0)
[2016-07-25] MEDS ORDERED: Diclofenac Sodium PO (14:15)
[2016-07-25] MEDS ORDERED: CELE20TA PO (14:15)
[2016-07-25] MEDS ORDERED: ABIL15TA2 PO (14:15)
[2016-07-25] MEDS ORDERED: TRAZ100T6 PO (14:15)
[2016-07-25] MEDS ORDERED: LORA-474 PO (14:15)
[2016-07-25] MEDS ORDERED: NEXI40CA PO (14:15)
[2016-07-25 14:30] LABS: PLATELET ESTIMATE SMEAR NORMAL (NORMAL); PLATELET MORPHOLOGY CLUMPED (NORMAL); SCAN/DIFF AUTO DIFF CONFIRMED
[2016-07-25 14:34] LABS: BLOOD, URINE NEG (NEG); COMMENT (UR) CULT NOT INDICATED; CULTURE IF INDICATED CULT NOT INDICATED; GLUCOSE,URINE NEG (NEG); KETONE, URINE NEG (NEG); MUCUS URINE FEW /lpf (OCC); NITRITE,URINE NEG (NEG); SQUAMOUS EPITHELIAL CELL URINE 1 /hpf (0-5); URINE COLOR LIGHT-YELLOW (YELLW/STRAW)
[2016-07-25 14:41] LABS: AMPHETAMINE, URINE NEG (NEG); BARBITURATES, URINE NEG (NEG); COCAINE, URINE NEG (NEG)
== END 2016-07-25 16:27 | disposition home or self-care (01) ==
LOC: NEPC 13:00
DX: G40.89 Other seizures (principal); E11.9 Type 2 diabetes mellitus without complications; I10 Essential (primary) hypertension; E78.00 Pure hypercholesterolemia, unspecified; Z79.84 Long term (current) use of oral hypoglycemic drugs; Z87.39 Personal history of other diseases of the musculoskeletal system and connective tissue; Z87.09 Personal history of other diseases of the respiratory system; Z86.59 Personal history of other mental and behavioral disorders; Z86.79 Personal history of other diseases of the circulatory system; Z87.19 Personal history of other diseases of the digestive system
CPT/HCPCS: 80048; 80307; 81001; 83605; 85025; 99283

== ENCOUNTER 2016-08-16 15:11 | Emergency (ER) | payer MEDICAID, MEDICARE ==
[~2016-08-16] VITALS: Ht 170.2 cm; Wt 117.0 kg
[~2016-08-16 15:11] MED LIST changes: +ABIL15TA2 PO; -ALBU0.63 NEB; -ALLO100T PO; -ATOR20TA15 PO; +CELE20TA PO; +Diclofenac Sodium PO; -FLUT1INH7 INH; +KEPP750T PO; +LORA-474 PO; -METO25TA3 PO; +NEXI40CA PO; -TRAZ100T4 PO; +TRAZ100T6 PO
[2016-08-16 15:16] VITALS: BP 110/75; PULSE 93; RESP 16; TEMP 98.4; O2SAT 97
[2016-08-16] MEDS ORDERED: TOPA50TA7 PO (15:32)
[2016-08-16] MEDS ORDERED: ALBUAER3 INH (15:37)
[2016-08-16] MEDS ORDERED: ADVA250A INH (15:37)
[2016-08-16] MEDS ORDERED: [UNRECOGNIZED DRUG - OTHER] PO (15:37)
--- NOTE | 2016-08-16 16:13 | PD ---
HPI Chief Complaint: Injury Time Seen by Provider: 16:01 Travel History International Travel<30 days: No Contact w/Intl Traveler<30days: No Traveled to known affect area: No History of Present Illness HPI The patient was seen and examined in the presence of the nurse. This patient complains of right knee pain. 3 days ago she inadvertently stepped on a plate that was on the ground and she lost her footing and fell onto her right knee. Complains of pain and bruising to the right knee. Worse with weightbearing. She has been getting around using her walker. No head injury. No alleviating factors. PFSH Past Medical History Hx Anticoagulant Therapy: No Arthritis: Yes (RA) Asthma: Yes Bipolar Disorder: Yes Anxiety: Yes Depression: Yes Cardiovascular Problems: Yes (CHOL) High Cholesterol: Yes Chemotherapy: No Chest Pain: No Cerebrovascular Accident: No Diabetes: Yes Patient Takes Glucophage: Yes Diminished Hearing: No Endocrine: Yes Fibromyalgia: Yes Gastrointestinal Disorders: Yes (VOMITING ) GERD: Yes Genitourinary: No Hypertension: Yes Immune Disorder: No Implanted Vascular Access Dvce: No Musculoskeletal: Yes (HERNIATED DISC IN NECK) Reproductive: No Respiratory: Yes (asthma) Immunizations Current: Yes Migraines: No Seizures: Yes (See EMR) Sleep Apnea: Yes (no device) Tetanus Vaccination: Unknown ?: Not Menopausal: Yes : 0 Past Surgical History Abdominal Surgery: No Appendectomy: Yes Body Medical Devices: loop recorder by [employer] Cardiac Surgery: No Cholecystectomy: Yes Ear Surgery: No Endocrine Surgery: No Eye Surgery: No Genitourinary Surgery: Yes (BLADDER SLING REMOVED) Gynecologic Surgery: Yes Hysterectomy: Yes Neurologic Surgery: No Oral Surgery: No Thoracic Surgery: No Tonsillectomy: Yes Other Surgery: Yes (NECK SURGERY 10-10-14) Social History Alcohol Use: Yes (occ.) Tobacco Use: No Substance Use: No Allergies-Medications (Allergen,Severity, Reaction): Coded Allergies: Amoxicillin (Verified Allergy, Severe, HIVES, 08/16/16) Flexeril (Verified Allergy, Severe, HIVES, 08/16/16) Ibuprofen (Verified Allergy, Severe, Bleeding, 08/16/16) Motrin (Verified Allergy, Severe, GI BLEED, 08/16/16) Reglan (Verified Allergy, Severe, DYSTONIA, 08/16/16) Skelaxin (Verified Allergy, Severe, HIVES, 08/16/16) Tomato (Verified Allergy, Severe, 08/16/16) Dilaudid (Verified Adverse Reaction, Intermediate, VOMITING, 08/16/16) Uncoded Allergies: ADIPEX (Allergy, Unknown, 10/18/13) Reported Meds & Prescriptions Reported Meds & Active Scripts Active Reported Proair Hfa 8.5 GM Inh (Albuterol Sulfate) 90 Mcg/Act Aer 2 Puff INH Q4-6H PRN 108 mcg/actuation [Brio Ellipta] 1 Inh PO DAILY Advair Diskus Inh (Fluticasone-Salmeterol Inh) 250-50 Mcg/Blist Aer 1 Puff INH BID Rinse mouth after use. Topamax (Topiramate) 50 Mg Tab 50 Mg PO BID Ativan (Lorazepam) 1 Mg Tab 1 Mg PO TID Abilify (Aripiprazole) 15 Mg Tab 15 Mg PO HS Celexa (Citalopram Hydrobromide) 20 Mg Tab 40 Mg PO DAILY Trazodone (Trazodone HCl) 100 Mg Tablet 100 Mg PO HS Nexium (Esomeprazole DR) 40 Mg Capdr 40 Mg PO DAILY [Diclofenac Sodium] 75 Mg PO BID Keppra (Levetiracetam) 750 Mg Tab 750 Mg PO BID Gabapentin 800 Mg Tab 800 Mg PO TID Metformin (Metformin HCl) 500 Mg Tab 500 Mg PO BIDPC With meals Montelukast (Montelukast Sodium) 10 Mg Tab 10 Mg PO HS Baclofen 10 Mg Tab 10 Mg PO TID Review of Systems General / Constitutional: No: Fever HENT: No: Headaches Cardiovascular: No: Chest Pain or Discomfort Respiratory: No: Cough Musculoskeletal: Positive: Pain Physical Exam Narrative GASTROINTESTINAL: Abdomen soft, non-tender, nondistended. Positive bowel sounds. No hepato-splenomegaly, or palpable masses. No guarding. SKIN: Focused skin assessment reveals no rash or ulcers. Skin is warm and dry. Palpation shows no induration or nodules. Right knee: There is ecchymosis over the lateral or to the knee with tenderness. No joint instability. Data Data Last Documented VS Vital Signs Date Time Temp Pulse Resp B/P Pulse Ox O2 Delivery O2 Flow Rate FiO2 08/16/16 15:16 98.4 93 16 110/75 97 Orders Knee, Complete (4vws) (08/16/16 ) MDM Medical Decision Making Medical Screen Exam Complete: Yes Emergency Medical Condition: Yes Medical Record Reviewed: Yes Differential Diagnosis Fracture, dislocation, contusion Narrative Course I have reviewed the patient's electronic medical record. Patient was in here for pseudoseizure recently I reviewed her right knee x-rays which show some degenerative change without fracture Supportive care discussed She should ice and elevate and limit weightbearing and follow-up with her physician Diagnosis Primary Impression: Contusion of right knee, initial encounter Additional Instructions: The patient was advised to follow up with their physician and return if they worsen. Ice and elevate right knee as needed and limit weightbearing Med/Other Pt SpecificInfo: Other Disposition: 01 DISCHARGE HOME Condition: Stable Jose G Rodriguez MD Aug 16, 2016 16:13
--- NOTE | 2016-08-16 16:50 | RADRPT ---
EXAM DATE/TIME: 08/16/2016 16:10 [facility] COMPARISON: KNEE RIGHT COMPLETE (4VWS), March 14, 2015, 13:25. INDICATIONS : Right knee pain. MEDICAL HISTORY : Rheumatoid arthritis. SURGICAL HISTORY : None. ENCOUNTER: Initial ACUITY: 2 days PAIN SCORE: 6/10 LOCATION: Right knee. FINDINGS: Four view examination of the right knee demonstrates no evidence of fracture or dislocation. Bony mi neralization is normal. There stable primary degenerative changes of the knee joint. There is no evid ence of joint effusion. The suprapatellar soft tissues have a normal configuration. No significant ch sonia compared to the prior study. CONCLUSION: Stable primary bony degenerative changes. No significant change. Francois Roy MD on August 16, 2016 at 16:46 Board Certified Radiologist. This report was verified electronically.
[2016-08-16 17:29] VITALS: BP 142/74
== END 2016-08-16 17:40 | disposition home or self-care (01) ==
LOC: PHED 15:11
DX: S80.01XA Contusion of right knee, initial encounter (principal); I10 Essential (primary) hypertension; J45.909 Unspecified asthma, uncomplicated; E11.9 Type 2 diabetes mellitus without complications; M79.7 Fibromyalgia; K21.9 Gastro-esophageal reflux disease without esophagitis; E78.00 Pure hypercholesterolemia, unspecified; W18.31XA Fall on same level due to stepping on an object, initial encounter; Y93.89 Activity, other specified; Y92.9 Unspecified place or not applicable
CPT/HCPCS: 73564; 99283

== ENCOUNTER 2016-08-19 17:32 | Emergency (ER) | payer MEDICARE ==
[~2016-08-19] VITALS: Ht 170.2 cm; Wt 120.0 kg
[~2016-08-19 17:32] MED LIST changes: +ADVA250A INH; +ALBUAER3 INH; +TOPA50TA7 PO; +[UNRECOGNIZED DRUG - OTHER] PO
[2016-08-19 17:51] VITALS: BP 143/76; PULSE 78; RESP 18; TEMP 98.5; O2SAT 96
--- NOTE | 2016-08-19 18:07 | PD ---
HPI Chief Complaint: seizure Time Seen by Provider: 18:07 Travel History International Travel<30 days: No Contact w/Intl Traveler<30days: No Traveled to known affect area: No History of Present Illness HPI 46 year-old female presents to the emergency department for evaluation. Patient believes she had a seizure while she was sleeping. 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 She states she woke up feeling sleepy and disoriented. She also reports the chest pain associated with a cough. Denies any other focal deficit or weakness. No recent illnesses, fever, chills. No other symptoms to report. 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) Reproductive: No Respiratory: Yes (asthma) Immunizations Current: Yes Migraines: No Seizures: Yes (See EMR) Sleep Apnea: Yes (no device) Menopausal: Yes : 0 Past Surgical History Abdominal Surgery: No Appendectomy: Yes Body Medical Devices: loop recorder by [employer] Cardiac Surgery: No Cholecystectomy: Yes Ear Surgery: No Endocrine Surgery: No Eye Surgery: No Genitourinary Surgery: Yes (BLADDER SLING REMOVED) Gynecologic Surgery: Yes Hysterectomy: Yes Neurologic Surgery: No Oral Surgery: No Thoracic Surgery: No Tonsillectomy: Yes Other Surgery: Yes (NECK SURGERY 10-10-14) Social History Alcohol Use: Yes (occ.) Tobacco Use: No Substance Use: No Allergies-Medications (Allergen,Severity, Reaction): Coded Allergies: Amoxicillin (Verified Allergy, Severe, HIVES, 08/16/16) Flexeril (Verified Allergy, Severe, HIVES, 08/16/16) Ibuprofen (Verified Allergy, Severe, Bleeding, 08/16/16) Motrin (Verified Allergy, Severe, GI BLEED, 08/16/16) Reglan (Verified Allergy, Severe, DYSTONIA, 08/16/16) Skelaxin (Verified Allergy, Severe, HIVES, 08/16/16) Tomato (Verified Allergy, Severe, 08/16/16) Dilaudid (Verified Adverse Reaction, Intermediate, VOMITING, 08/16/16) Uncoded Allergies: ADIPEX (Allergy, Unknown, 10/18/13) Reported Meds & Prescriptions Reported Meds & Active Scripts Active Reported Proair Hfa 8.5 GM Inh (Albuterol Sulfate) 90 Mcg/Act Aer 2 Puff INH Q4-6H PRN 108 mcg/actuation [Brio Ellipta] 1 Inh PO DAILY Advair Diskus Inh (Fluticasone-Salmeterol Inh) 250-50 Mcg/Blist Aer 1 Puff INH BID Rinse mouth after use. Topamax (Topiramate) 50 Mg Tab 50 Mg PO BID Ativan (Lorazepam) 1 Mg Tab 1 Mg PO TID Abilify (Aripiprazole) 15 Mg Tab 15 Mg PO HS Celexa (Citalopram Hydrobromide) 20 Mg Tab 40 Mg PO DAILY Trazodone (Trazodone HCl) 100 Mg Tablet 100 Mg PO HS Nexium (Esomeprazole DR) 40 Mg Capdr 40 Mg PO DAILY [Diclofenac Sodium] 75 Mg PO BID Keppra (Levetiracetam) 750 Mg Tab 750 Mg PO BID Gabapentin 800 Mg Tab 800 Mg PO TID Metformin (Metformin HCl) 500 Mg Tab 500 Mg PO BIDPC With meals Montelukast (Montelukast Sodium) 10 Mg Tab 10 Mg PO HS Baclofen 10 Mg Tab 10 Mg PO TID Review of Systems Except as stated in HPI: all other systems reviewed are Neg Physical Exam Narrative GENERAL: Well-nourished female patient, bizarre affect, in no acute distress SKIN: Focused skin assessment warm/dry. HEAD: Atraumatic. Normocephalic. EYES: Pupils equal and round. No scleral icterus. No injection or drainage. ENT: No nasal bleeding or discharge. Mucous membranes pink and moist. NECK: Trachea midline. No JVD. CARDIOVASCULAR: Regular rate and rhythm. No murmur appreciated. RESPIRATORY: No accessory muscle use. Clear to auscultation. Breath sounds equal bilaterally. GASTROINTESTINAL: Abdomen soft, non-tender, nondistended. Hepatic and splenic margins not palpable. MUSCULOSKELETAL: No obvious deformities. No clubbing. No cyanosis. No edema. NEUROLOGICAL: Awake and alert. No obvious cranial nerve deficits. Motor grossly within normal limits. Normal speech. Data Data Last Documented VS Vital Signs Date Time Temp Pulse Resp B/P Pulse Ox O2 Delivery O2 Flow Rate FiO2 08/19/16 17:51 98.5 78 18 143/76 96 Orders Complete Blood Count With Diff (08/19/16 18:05) Basic Metabolic Panel (Bmp) (08/19/16 18:05) Urinalysis - C+S If Indicated (08/19/16 18:05) Electrocardiogram (08/19/16 18:05) Magnesium (Mg) (08/19/16 18:05) Levetiracetam (08/19/16 18:05) Chest, Single Ap (08/19/16 ) Labs Laboratory Tests Test 08/19/16 08/19/16 17:45 19:50 Urine Color YELLOW Urine Turbidity CLEAR Urine pH 5.5 Urine Specific [place] 1.012 Urine Protein NEG mg/dL Urine Glucose (UA) NEG mg/dL Urine Ketones NEG mg/dL Urine Occult Blood NEG Urine Nitrite NEG Urine Bilirubin NEG Urine Urobilinogen LESS THAN 2.0 MG/DL Urine Leukocyte Esterase NEG Urine WBC LESS THAN 1 /hpf Urine Squamous Epithelial <1 /hpf Cells Urine Bacteria RARE /hpf Urine Mucus FEW /lpf Microscopic Urinalysis Comment CULT NOT INDICATED White Blood Count 8.0 TH/MM3 Red Blood Count 4.07 MIL/MM3 Hemoglobin 11.3 GM/DL Hematocrit 35.6 % Mean Corpuscular Volume 87.3 FL Mean Corpuscular Hemoglobin 27.8 PG Mean Corpuscular Hemoglobin 31.8 % Concent Red Cell Distribution Width 15.8 % Platelet Count 269 TH/MM3 Mean Platelet Volume 8.8 FL Neutrophils (%) (Auto) 68.5 % Lymphocytes (%) (Auto) 20.9 % Monocytes (%) (Auto) 7.3 % Eosinophils (%) (Auto) 2.6 % Basophils (%) (Auto) 0.7 % Neutrophils # (Auto) 5.5 TH/MM3 Lymphocytes # (Auto) 1.7 TH/MM3 Monocytes # (Auto) 0.6 TH/MM3 Eosinophils # (Auto) 0.2 TH/MM3 Basophils # (Auto) 0.1 TH/MM3 CBC Comment DIFF FINAL Differential Comment Sodium Level 141 MEQ/L Potassium Level 3.6 MEQ/L Chloride Level 109 MEQ/L Carbon Dioxide Level 24.3 MEQ/L Anion Gap 8 MEQ/L Blood Urea Nitrogen 24 MG/DL Creatinine 1.05 MG/DL Estimat Glomerular Filtration 57 ML/MIN Rate Random Glucose 95 MG/DL Calcium Level 9.3 MG/DL Magnesium Level 1.9 MG/DL MDM Medical Decision Making Medical Screen Exam Complete: Yes Emergency Medical Condition: Yes Medical Record Reviewed: Yes Differential Diagnosis Seizure versus pseudoseizure versus electrolyte abnormality versus mood disorder versus personality disorder versus URI versus chest wall pain versus pleuritic pain Narrative Course 36 year-old female presents to the emergency department for evaluation. Patient appears without distress. She is not appear postictal at this time. CBC and BMP are without acute concern. Urinalysis is was for bacteria and few mucus, culture is not indicated. Chest x-ray shows clear lungs. Patient is observed. She has no seizure activity here. She remained stable. She'll be discharged at this time. 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
--- NOTE | 2016-08-19 18:43 | RADRPT ---
EXAM DATE/TIME: 08/19/2016 18:07 [facility] COMPARISON: CHEST SINGLE AP, April 23, 2016, 17:49. INDICATIONS : Cough MEDICAL HISTORY : None. SURGICAL HISTORY : Cardic recorder ENCOUNTER: Initial ACUITY: 4 - 6 days PAIN SCORE: 0/10 LOCATION: chest FINDINGS: A single view of the chest demonstrates the lungs to be symmetrically aerated without evidence of mas s, infiltrate or effusion. The cardiomediastinal contours are unremarkable. Osseous structures are intact. Loop recording device projects over the lower left chest. CONCLUSION: The lungs are clear. Brendan Nava MD on August 19, 2016 at 18:40 Board Certified Radiologist. This report was verified electronically.
[2016-08-19 20:18] LABS: AUTOMATED NEUTROPHIL # 5.5 TH/MM3 (1.8-7.7); BASOPHIL # 0.1 TH/MM3 (0-0.2); BASOPHIL % 0.7 % (0.0-2.0); EOSINOPHIL # 0.2 TH/MM3 (0-0.4); EOSINOPHIL % 2.6 % (0.0-4.0); HEMATOCRIT 35.6 % (35.0-46.0); HEMO FLAGS DIFF FINAL; LYMPH % 20.9 % (9.0-44.0); LYMPHOCYTE # 1.7 TH/MM3 (1.0-4.8); MEAN CELL VOLUME 87.3 FL (80.0-100.0); MEAN CORPUSCULAR HEMOGLOBIN 27.8 PG (27.0-34.0); MEAN CORPUSCULAR HGB CONC 31.8 % (32.0-36.0); MONO % 7.3 % (0.0-8.0); NEUT % 68.5 % (16.0-70.0); PLATELET COUNT 269 TH/MM3 (150-450); RED BLOOD COUNT 4.07 MIL/MM3 (4.00-5.30); RED CELL DISTRIBUTION WIDTH 15.8 % (11.6-17.2)
[2016-08-19 20:31] LABS: BICARBONATE 24.3 MEQ/L (21.0-32.0); MAGNESIUM 1.9 MG/DL (1.5-2.5); POTASSIUM 3.6 MEQ/L (3.5-5.1)
[2016-08-19 21:33] LABS: BACTERIA, URINE RARE /hpf; BLOOD, URINE NEG (NEG); COMMENT (UR) CULT NOT INDICATED; CULTURE IF INDICATED CULT NOT INDICATED; GLUCOSE,URINE NEG (NEG); KETONE, URINE NEG (NEG); MUCUS URINE FEW /lpf (OCC); NITRITE,URINE NEG (NEG); PH, URINE 5.5 (5.0-8.5); SQUAMOUS EPITHELIAL CELL URINE <1 /hpf (0-5); URINE COLOR YELLOW (YELLW/STRAW)
--- NOTE | 2016-08-20 13:52 | EKG ---
Date Performed: 08/19/2016 Time Performed: 19:11:42 PTAGE: 46 years EKG: Sinus rhythm NONSPECIFIC T-WAVE ABNORMALITY BORDERLINE ECG Compared to prior tracing no significant change PREVIOUS TRACING : 04/23/2016 17.36 DOCTOR: Loi Encarnacion Interpretating Date/Time 08/20/2016 13:50:03
== END 2016-08-19 21:16 | disposition home or self-care (01) ==
LOC: NEDAMB 17:32
DX: G40.89 Other seizures (principal); G40.909 Epilepsy, unspecified, not intractable, without status epilepticus; F60.89 Other specific personality disorders; R07.89 Other chest pain; R05 Cough; I10 Essential (primary) hypertension; E78.00 Pure hypercholesterolemia, unspecified; E11.9 Type 2 diabetes mellitus without complications; M79.7 Fibromyalgia; K21.9 Gastro-esophageal reflux disease without esophagitis; G47.30 Sleep apnea, unspecified; F31.9 Bipolar disorder, unspecified; Z79.84 Long term (current) use of oral hypoglycemic drugs
CPT/HCPCS: 71010; 80048; 80177; 81001; 83735; 85025; 93005; 99285

== ENCOUNTER 2016-11-06 17:42 | Emergency (ER) | payer MEDICARE, OTHER ==
[2016-11-06 17:51] VITALS: BP 120/76; PULSE 84; RESP 20; TEMP 98.7; O2SAT 94
--- NOTE | 2016-11-06 18:38 | PD ---
HPI Chief Complaint: Laceration/Skin Injury Time Seen by Provider: 18:14 Travel History International Travel<30 days: No Contact w/Intl Traveler<30days: No Traveled to known affect area: No History of Present Illness HPI 46-year-old female presents emergency department for evaluation of a laceration to her that second digit. Patient reports while at [employer] she cut her finger with a kitchen knife. She reports normal sensation and normal range of motion within the digit. The bleeding is well-controlled. Tetanus immunization is less than 5 years. She reports mild throbbing pain at the site. No aggravating or alleviating factors. 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) Reproductive: No Respiratory: Yes (asthma) Immunizations Current: Yes Migraines: No Seizures: Yes (See EMR) Sleep Apnea: Yes (no device) Menopausal: Yes : 0 Past Surgical History Abdominal Surgery: No Appendectomy: Yes Body Medical Devices: loop recorder by [employer] Cardiac Surgery: No Cholecystectomy: Yes Ear Surgery: No Endocrine Surgery: No Eye Surgery: No Genitourinary Surgery: Yes (BLADDER SLING REMOVED) Gynecologic Surgery: Yes Hysterectomy: Yes Neurologic Surgery: No Oral Surgery: No Thoracic Surgery: No Tonsillectomy: Yes Other Surgery: Yes (NECK SURGERY 10-10-14) Social History Alcohol Use: Yes (occ.) Tobacco Use: No Substance Use: No Allergies-Medications (Allergen,Severity, Reaction): Coded Allergies: amoxicillin (Unverified Allergy, Severe, HIVES, 11/06/16) cyclobenzaprine (Unverified Allergy, Severe, HIVES, 11/06/16) ibuprofen (Unverified Allergy, Severe, GI BLEED, 11/06/16) metaxalone (Unverified Allergy, Severe, HIVES, 11/06/16) metoclopramide (Unverified Allergy, Severe, DYSTONIA, 11/06/16) tomato (Unverified Allergy, Severe, 11/06/16) hydromorphone (Unverified Adverse Reaction, Intermediate, VOMITING, ) Reported Meds & Prescriptions Reported Meds & Active Scripts Active Reported Proair Hfa 8.5 GM Inh (Albuterol Sulfate) 90 Mcg/Act Aer 2 Puff INH Q4-6H PRN 108 mcg/actuation [Brio Ellipta] 1 Inh PO DAILY Advair Diskus Inh (Fluticasone-Salmeterol Inh) 250-50 Mcg/Blist Aer 1 Puff INH BID Rinse mouth after use. Topamax (Topiramate) 50 Mg Tab 50 Mg PO BID Ativan (Lorazepam) 1 Mg Tab 1 Mg PO TID Abilify (Aripiprazole) 15 Mg Tab 15 Mg PO HS Celexa (Citalopram Hydrobromide) 20 Mg Tab 40 Mg PO DAILY Trazodone (Trazodone HCl) 100 Mg Tablet 100 Mg PO HS Nexium (Esomeprazole DR) 40 Mg Capdr 40 Mg PO DAILY [Diclofenac Sodium] 75 Mg PO BID Keppra (Levetiracetam) 750 Mg Tab 750 Mg PO BID Gabapentin 800 Mg Tab 800 Mg PO TID Metformin (Metformin HCl) 500 Mg Tab 500 Mg PO BIDPC With meals Montelukast (Montelukast Sodium) 10 Mg Tab 10 Mg PO HS Baclofen 10 Mg Tab 10 Mg PO TID Review of Systems Except as stated in HPI: all other systems reviewed are Neg Physical Exam Narrative GENERAL: Well-nourished, well-developed patient. SKIN: Focused skin assessment warm/dry. 1.5 cm superficial laceration to the left index finger. No active bleeding. The wound is very superficial. Edges are well approximated. No tendon injury or vascular injury visualized. HEAD: Normocephalic. NECK: Supple, trachea midline. No JVD or lymphadenopathy. MUSCULOSKELETAL: No cyanosis, or edema. Left hand:1.5 cm superficial laceration to the left index finger. No active bleeding. The wound is very superficial. Edges are well approximated. No tendon injury or vascular injury visualized. Patient is able to fully flex and extend the finger against resistance. Data Data Last Documented VS Vital Signs Date Time Temp Pulse Resp B/P (MAP) Pulse Ox O2 Delivery O2 Flow Rate FiO2 11/06/16 17:51 98.7 84 20 120/76 (91) 94 [facility] Medical Decision Making Medical Screen Exam Complete: Yes Emergency Medical Condition: Yes Differential Diagnosis Superficial finger laceration, abrasion, rule out tendon injury Narrative Course 46-year-old female presents emergency department for evaluation of very superficial laceration to the left index finger. There is no active bleeding upon arrival. Patient has full range of motion and normal since. The digit is neurovascular intact. Dermabond was applied to the wound. Wound care discussed with patient. Patient verbalizes understanding and agrees to plan. Procedures Procedure Narrative LACERATION LOCATION: Left index finger LENGTH: 1.5 cm superficial NUMBER OF STITCHES/SOFI: Dermabond REPAIR: The area of the laceration was prepped with Betadine and sterilely draped. The wound was copiously irrigated and explored without evidence of foreign body, tendon injury or neurovascular injury. The wound was closed using [Dermabond]. A sterile dressing was applied. The patient was advised to keep the dressing clean and dry. Patient tolerated the procedure well. Diagnosis Primary Impression: Finger laceration Qualified Codes: S61.211A - Laceration without foreign body of left index finger without damage to nail, initial encounter Referrals: Primary Care Physician Additional Instructions: Do not submerge the wound into water for the First 24 hours. The Dermabond will peel away on its own within 5-7 days. Disposition: 01 DISCHARGE HOME Condition: Stable Billie Cartwright Nov 06, 2016 18:38
== END 2016-11-06 19:19 | disposition home or self-care (01) ==
LOC: PHEFT 17:42
DX: S61.211A Laceration without foreign body of left index finger without damage to nail, initial encounter (principal); W26.0XXA Contact with knife, initial encounter; Y92.22 Religious institution as the place of occurrence of the external cause
CPT/HCPCS: 12001

== ENCOUNTER 2017-02-13 12:22 | Emergency (ER) | payer MEDICARE, OTHER ==
[~2017-02-13] VITALS: Ht 170.2 cm; Wt 120.0 kg
[~2017-02-13 12:22] MED LIST changes: -ABIL15TA2 PO; +ABIL15TA3 PO; -Diclofenac Sodium PO; +TRAZ100T10 PO; -TRAZ100T6 PO
[2017-02-13 12:29] VITALS: BP 122/86; PULSE 74; RESP 20; TEMP 98.3; O2SAT 96
[2017-02-13] MEDS ORDERED: PROT40TA PO (12:36)
--- NOTE | 2017-02-13 12:39 | PD ---
HPI Chief Complaint: Seizure Time Seen by Provider: 12:39 Travel History International Travel<30 days: No Contact w/Intl Traveler<30days: No Traveled to known affect area: No History of Present Illness HPI 46-year-old female was brought to the emergency room by EMS from the [facility] after she had a seizure. Patient sees a neurologist from [facility] and has been told that she would require cognitive therapy for the seizures. She has history of pseudoseizures rather. Currently she is awake and answering questions. Vital signs are stable. She is not on any medications for the seizures. PFSH Past Medical History Narrative Medical List of her past medical history as reviewed from the nursing note. Hx Anticoagulant Therapy: No Arthritis: Yes (RA) Asthma: Yes Bipolar Disorder: Yes Anxiety: Yes Depression: Yes Cardiovascular Problems: Yes (CHOL) High Cholesterol: Yes Chemotherapy: No Chest Pain: No Cerebrovascular Accident: No Diabetes: Yes Patient Takes Glucophage: Yes Diminished Hearing: No Endocrine: Yes Fibromyalgia: Yes Gastrointestinal Disorders: Yes (VOMITING ) GERD: Yes Genitourinary: No Hypertension: Yes Immune Disorder: No Implanted Vascular Access Dvce: No Musculoskeletal: Yes (HERNIATED DISC IN NECK) Psychiatric: Yes (Hx of treatment for Bipolar Disorder) Reproductive: No Respiratory: Yes (asthma) Immunizations Current: Yes Migraines: No Seizures: Yes Sleep Apnea: Yes (no device) Tetanus Vaccination: < 5 Years Influenza Vaccination: No ?: Not Menopausal: Yes : 0 Past Surgical History Abdominal Surgery: No Appendectomy: Yes Body Medical Devices: loop recorder by [employer] Cardiac Surgery: No Cholecystectomy: Yes Ear Surgery: No Endocrine Surgery: No Eye Surgery: No Genitourinary Surgery: Yes (BLADDER SLING REMOVED) Gynecologic Surgery: Yes Hysterectomy: Yes Neurologic Surgery: No Oral Surgery: No Thoracic Surgery: No Tonsillectomy: Yes Other Surgery: Yes (NECK SURGERY 10-10-14) Social History Alcohol Use: Yes (occ.) Tobacco Use: No Substance Use: No Allergies-Medications (Allergen,Severity, Reaction): Coded Allergies: amoxicillin (Unverified Allergy, Severe, HIVES, 02/13/17) cyclobenzaprine (Unverified Allergy, Severe, HIVES, 02/13/17) ibuprofen (Unverified Allergy, Severe, GI BLEED, 02/13/17) metaxalone (Unverified Allergy, Severe, HIVES, 02/13/17) metoclopramide (Unverified Allergy, Severe, DYSTONIA, 02/13/17) tomato (Unverified Allergy, Severe, 02/13/17) hydromorphone (Unverified Adverse Reaction, Intermediate, VOMITING, ) Comments List of allergies reviewed from the nursing note. Reported Meds & Prescriptions Reported Meds & Active Scripts Active Reported Protonix (Pantoprazole Sodium) 40 Mg Tab 40 Mg PO DAILY Proair Hfa 8.5 GM Inh (Albuterol Sulfate) 90 Mcg/Act Aer 2 Puff INH Q4-6H PRN 108 mcg/actuation [Brio Ellipta] 1 Inh PO DAILY Topamax (Topiramate) 50 Mg Tab 50 Mg PO BID Ativan (Lorazepam) 1 Mg Tab 1 Mg PO TID Abilify (Aripiprazole) 15 Mg Tab 15 Mg PO HS Celexa (Citalopram Hydrobromide) 20 Mg Tab 40 Mg PO DAILY Trazodone (Trazodone HCl) 100 Mg Tablet 100 Mg PO HS Gabapentin 800 Mg Tab 800 Mg PO TID Metformin (Metformin HCl) 500 Mg Tab 500 Mg PO BIDPC With meals Montelukast (Montelukast Sodium) 10 Mg Tab 10 Mg PO HS Baclofen 10 Mg Tab 10 Mg PO TID Narrative Medication List of her home medications reviewed from the nursing note. Review of Systems Except as stated in HPI: all other systems reviewed are Neg Neurologic: Positive: Seizures Physical Exam Narrative GENERAL: Awake, alert, no obvious distress, morbidly obese SKIN: Focused skin assessment warm/dry. HEAD: Atraumatic. Normocephalic. EYES: Pupils equal and round. No scleral icterus. No injection or drainage. ENT: No nasal bleeding or discharge. Mucous membranes pink and moist. NECK: Trachea midline. No JVD. CARDIOVASCULAR: Regular rate and rhythm. No murmur appreciated. RESPIRATORY: No accessory muscle use. Clear to auscultation. Breath sounds equal bilaterally. GASTROINTESTINAL: Abdomen soft, non-tender, nondistended. Hepatic and splenic margins not palpable. MUSCULOSKELETAL: No obvious deformities. No clubbing. No cyanosis. No edema. NEUROLOGICAL: Awake and alert. No obvious cranial nerve deficits. Motor grossly within normal limits. Normal speech. PSYCHIATRIC: Appropriate mood and affect; insight and judgment normal. Data Data Last Documented VS Orders Orders Complete Blood Count With Diff (02/13/17 12:43) Basic Metabolic Panel (Bmp) (02/13/17 12:43) Magnesium (Mg) (02/13/17 12:43) Blood Glucose (02/13/17 12:43) Ecg Monitoring (02/13/17 12:43) Iv Access Insert/Monitor (02/13/17 12:43) Oximetry (02/13/17 12:43) Sodium Chloride 0.9% Flush (Ns Flush) (02/13/17 12:45) ^ Seizure Precautions (02/13/17 12:43) Ed Discharge Order (02/13/17 14:55) Labs Laboratory Tests Test 02/13/17 13:30 White Blood Count 9.3 TH/MM3 Red Blood Count 4.01 MIL/MM3 Hemoglobin 11.7 GM/DL Hematocrit 36.3 % Mean Corpuscular Volume 90.5 FL Mean Corpuscular Hemoglobin 29.1 PG Mean Corpuscular Hemoglobin Concent 32.1 % Red Cell Distribution Width 15.6 % Platelet Count 297 TH/MM3 Mean Platelet Volume 8.3 FL Neutrophils (%) (Auto) 73.5 % Lymphocytes (%) (Auto) 16.6 % Monocytes (%) (Auto) 6.5 % Eosinophils (%) (Auto) 2.6 % Basophils (%) (Auto) 0.8 % Neutrophils # (Auto) 6.8 TH/MM3 Lymphocytes # (Auto) 1.5 TH/MM3 Monocytes # (Auto) 0.6 TH/MM3 Eosinophils # (Auto) 0.2 TH/MM3 Basophils # (Auto) 0.1 TH/MM3 CBC Comment DIFF FINAL Differential Comment Blood Urea Nitrogen 21 MG/DL Creatinine 0.91 MG/DL Random Glucose 97 MG/DL Calcium Level 9.0 MG/DL Magnesium Level 2.0 MG/DL Sodium Level 141 MEQ/L Potassium Level 3.8 MEQ/L Chloride Level 109 MEQ/L Carbon Dioxide Level 26.4 MEQ/L Anion Gap 6 MEQ/L Estimat Glomerular Filtration Rate 67 ML/MIN MDM Medical Decision Making Medical Screen Exam Complete: Yes Emergency Medical Condition: Yes Medical Record Reviewed: Yes Differential Diagnosis Seizures, pseudoseizure Narrative Course 2:54 PM blood test results of back and within normal limit. I'll discharge her home. Procedures EKG Prior to Arrival: No Diagnosis Primary Impression: Seizure Additional Instructions: Please follow-up with your neurologist. Disposition: 01 DISCHARGE HOME Condition: Stable Seema Espinoza MD Feb 13, 2017 12:39
[2017-02-13] MEDS ORDERED: SODIUM CHLORIDE 0.9% FLUSH 10 ML FLUSH IVF PRN (12:45)
[2017-02-13 13:13] VITALS: BP 114/62; PULSE 64; RESP 20; O2SAT 96
[2017-02-13 13:14] VITALS: RESP 20; O2SAT 95
[2017-02-13 13:52] LABS: AUTOMATED NEUTROPHIL # 6.8 TH/MM3 (1.8-7.7); BASOPHIL # 0.1 TH/MM3 (0-0.2); BASOPHIL % 0.8 % (0.0-2.0); EOSINOPHIL # 0.2 TH/MM3 (0-0.4); EOSINOPHIL % 2.6 % (0.0-4.0); HEMATOCRIT 36.3 % (35.0-46.0); HEMOGLOBIN 11.7 GM/DL (11.6-15.3); LYMPH % 16.6 % (9.0-44.0); LYMPHOCYTE # 1.5 TH/MM3 (1.0-4.8); MEAN CELL VOLUME 90.5 FL (80.0-100.0); MEAN CORPUSCULAR HEMOGLOBIN 29.1 PG (27.0-34.0); MEAN CORPUSCULAR HGB CONC 32.1 % (32.0-36.0); MEAN PLATELET VOLUME 8.3 FL (7.0-11.0); MONO % 6.5 % (0.0-8.0); MONOCYTE # 0.6 TH/MM3 (0-0.9); NEUT % 73.5 % (16.0-70.0); PLATELET COUNT 297 TH/MM3 (150-450); RED BLOOD COUNT 4.01 MIL/MM3 (4.00-5.30); RED CELL DISTRIBUTION WIDTH 15.6 % (11.6-17.2); WHITE BLOOD COUNT 9.3 TH/MM3 (4.0-11.0)
[2017-02-13 13:56] LABS: BICARBONATE 26.4 MEQ/L (21.0-32.0); CREATININE 0.91 MG/DL (0.50-1.00)
[2017-02-13 15:07] VITALS: BP 128/74; PULSE 64; RESP 20; O2SAT 98
== END 2017-02-13 15:59 | disposition home or self-care (01) ==
LOC: NEPE 12:22
DX: R56.9 Unspecified convulsions (principal); J45.909 Unspecified asthma, uncomplicated; F31.9 Bipolar disorder, unspecified; E78.00 Pure hypercholesterolemia, unspecified; E11.9 Type 2 diabetes mellitus without complications; K21.9 Gastro-esophageal reflux disease without esophagitis; I10 Essential (primary) hypertension; F41.9 Anxiety disorder, unspecified; Z88.0 Allergy status to penicillin
CPT/HCPCS: 80048; 83735; 85025; 99283